=== PATIENT | male | born 1980 | race Caucasian/White ===

== ENCOUNTER 2024-03-12 08:29 | Outpatient (CLI) | payer OTHER, SELFPAY | END 2024-03-12 08:30 | disposition home or self-care (01) | PROVIDERS: Visit Provider Family Medicine | DX: M54.16 Radiculopathy, lumbar region (principal); M51.36 Other intervertebral disc degeneration, lumbar region | CPT/HCPCS: 62323; J0702; Q9966 ==

== ENCOUNTER 2024-05-07 12:52 | Outpatient (CLI) | payer OTHER, SELFPAY | END 2024-05-07 12:53 | disposition home or self-care (01) | LOC: INJ CL 12:52 | PROVIDERS: Visit Provider Family Medicine | DX: M54.16 Radiculopathy, lumbar region (principal); M51.26 Other intervertebral disc displacement, lumbar region | CPT/HCPCS: 64483; J1100; Q9966 ==

== ENCOUNTER 2025-01-18 08:10 | Outpatient (CLI) | payer OTHER, SELFPAY | END 2025-01-18 08:11 | disposition home or self-care (01) | PROVIDERS: PCP Student in an Organized Health Care Education/Training Program; Visit Provider Family Medicine | DX: M51.26 Other intervertebral disc displacement, lumbar region (principal); M54.16 Radiculopathy, lumbar region | CPT/HCPCS: 64483; J1100; Q9966 ==